=== PATIENT | female | born 1990 | race American Indian/Alaskan Native ===

== ENCOUNTER 2016-11-10 17:10 | Emergency (ER) | payer MEDICAID ==
--- NOTE | 2016-11-10 20:56 | Emergency Department Report ---
Entered by ZELDA NUNEZ, acting as scribe for CHEYENNE LEE PA. ED General Adult HPI - General Chief complaint: Skin Rash Stated complaint: ALLERGIC REACTION Time Seen by Provider: 11/10/16 20:10 Source: patient Mode of arrival: Ambulatory Limitations: No Limitations - History of Present Illness Initial comments: 26 y/o female presents to ED c/o rashes to her arms, legs, buttocks, and genitals since 1 week ago. She states she initially believed it was an allergic reaction, per her mother, and admits to taking Benadryl with relief of rashes from her arms and legs; however, notes the rash on her buttocks and genital area has persisted. She describes the rash as red bumps that are itchy, and aggravated by scratching affect areas. Pt denies history of allergic reactions. She denies bleeding or drainage from the rashes, as well as fever, nausea, vomiting, dysphagia, shortness of breath, abdominal pain, chest pain, urinary symptoms, vaginal discharge. She states she has never experienced these symptoms before. No additional complaints. Onset/Timin -: Gradual, week(s) Location: genitals, buttocks, upper extremity, lower extremity Radiation: non-radiation Quality: constant Consistency: constant (noting resolution of rash to arms and legs only) Improves with: other (Benadryl, resolving rash to arms and legs only) Worsens with: other (scratching affected area) Associated Symptoms: denies: denies other symptoms, chest pain, fever/chills, nausea/vomiting, shortness of breath, other (dysphagia) Treatments Prior to Arrival: other (Benadryl) - Related Data Previous Rx's Medication Instructions Recorded Last Taken Type diphenhydrAMINE [Benadryl CAP] 25 mg PO Q6HR PRN #30 capsule 11/10/16 Unknown Rx predniSONE [Deltasone] 20 mg PO QDAY #5 tab 11/10/16 Unknown Rx Allergies Allergy/AdvReac Type Severity Reaction Status Date / Time No Known Allergies Allergy Unverified 11/10/16 17:32 ED Review of Systems ROS: Constitutional: Denies chills, fever, diaphoresis, malaise, weakness Eyes: Denies eye pain ENT: Denies ear pain, throat pain, congestion Respiratory: Denies cough, shortness of breath, wheezing Cardiovascular: Denies chest pain, palpitations Endocrine: No symptoms reported GI: Denies abdominal pain, nausea, vomiting, diarrhea Musculoskeletal: Denies back pain, joint swelling, arthralgia, myalgia Skin: Positive for rash, pruritus to buttocks and genitals, negative for bleeding or drainage Neurological: Denies headache, weakness, numbness, paresthesias ED Past Medical Hx - Past Medical History Previous Medical History?: No - Surgical History Past Surgical History?: No - Social History Smoking Status: Never Smoker Substance Use Type: Alcohol - Medications Home Medications: Home Medications Medication Instructions Recorded Confirmed Last Taken Type diphenhydrAMINE [Benadryl CAP] 25 mg PO Q6HR PRN #30 capsule 11/10/16 Unknown Rx predniSONE [Deltasone] 20 mg PO QDAY #5 tab 11/10/16 Unknown Rx ED Physical Exam - General Limitations: No Limitations - Other Other exam information: GENERAL: The patient is well-developed and well-nourished. Patient is in NAD. HEAD: Normocephalic. Atraumatic. EYES: Extraocular motions are intact, PERRL. EARS: External auditory canals and tympanic membranes clear; hearing grossly intact. NOSE: Normal nasal mucosa with no nasal discharge. THROAT: No erythema, swelling or exudates. NECK: Supple, nontender, without lymphadenopathy. No meningitic signs are noted. CHEST/LUNGS: Clear to auscultation throughout. HEART/CARDIOVASCULAR: Regular rate and rhythm. No murmurs, rubs or gallops. ABDOMEN: Abdomen is soft, nontender. Bowel sounds normoactive. No guarding or rebound tenderness. EXTREMITIES: No cyanosis, clubbing or edema. Peripheral pulses intact. Capillary refill less than 2 seconds. SKIN: Erythematous, blanching, maculo-papular rash noted over buttocks and genital folds. No tenderness to palpation. Positive for pruritis. ED Course Vital Signs 11/10/16 17:29 Temperature 98.6 F Pulse Rate 85 Respiratory 18 Rate Blood Pressure 123/78 O2 Sat by Pulse 100 Oximetry ED Medical Decision Making - Lab Data Vital Signs 11/10/16 17:29 Temperature 98.6 F Pulse Rate 85 Respiratory 18 Rate Blood Pressure 123/78 O2 Sat by Pulse 100 Oximetry - Medical Decision Making 26 year old female patient with no history of allergies presents today with pruritic rash to her buttocks and genital areas persisting since 1 week. Patient is in no acute distress at this time. She will be discharged home and is encouraged to follow up with a primary care provider. She will be sent home on Benadryl and prednisone and is encouraged to return to the emergency room for any worsening symptoms. ED Disposition Clinical Impression: Rash, Pruritus and related conditions Disposition: DISCHARGED TO HOME OR SELFCARE Is pt being admited?: No Does the pt Need Aspirin: No Condition: Stable Instructions: Acute Rash (ED), Food Allergy (ED), Urticaria (ED) Additional Instructions: Follow-up with primary care provider. Return to the emergency department if symptoms worsen. Prescriptions: diphenhydrAMINE [Benadryl CAP] 25 mg PO Q6HR PRN #30 capsule PRN Reason: Itching predniSONE [Deltasone] 20 mg PO QDAY #5 tab Referrals: MICHAEL SMITH MD [Primary Care Provider] - 3-5 Days [facility] [Outside] - 3-5 Days Forms: Work/School Release Form(ED) Time of Disposition: 20:53 This documentation as recorded by the MAYRA hay AHSAN,accurately reflects the service I personally performed and the decisions made by ,CHEYENNE LEE PA.
[2016-11-10 21:05] VITALS: BP 122/60
== END 2016-11-10 21:29 | disposition home or self-care (01) ==
LOC: ED 17:10
DX: L29.9 Pruritus, unspecified (principal)
CPT/HCPCS: 99282

== ENCOUNTER 2019-01-30 10:43 | Emergency (ER) | payer MEDICAID ==
[2019-01-30 10:51] VITALS: BP 134/92
--- NOTE | 2019-01-30 11:44 | XRay Report ---
CHEST 2 VIEWS INDICATION / CLINICAL INFORMATION: MAIN: cough FOR 1 MONTH. COMPARISON: None available. FINDINGS: SUPPORT DEVICES: None. HEART / MEDIASTINUM: No significant abnormality. LUNGS / PLEURA: No significant pulmonary or pleural abnormality. No pneumothorax. ADDITIONAL FINDINGS: No significant additional findings. IMPRESSION: 1. No acute findings. Signer Name: Rickie Fuller MD Signed: 01/30/2019 11:40 AM Workstation Name: [id number]
--- NOTE | 2019-01-30 13:10 | Emergency Department Report ---
Minor Respiratory - HPI Chief Complaint: Dizziness Stated Complaint: SEVERE COUGH/RAPID HEART BEAT Time Seen by Provider: 01/30/19 12:15 Duration: 4 weeks Severity: moderate Minor Respiratory: Yes Able to Tolerate Fluids, Yes Cough, No Rhinorrhea, No Sore Throat, No Ear Pain, No Sick Contacts, No Hemoptysis, No Chest Pain, No Shortness of Breath, No Fever Other History: 28-year-old healthy looking female who presents to ED complaining of coughing for the past month. Patient states cough is dry cough nonproductive. Patient states she has used all the counter medications with no relief. Patient denies any history of asthma or smoker. ED Review of Systems ROS: Stated complaint: SEVERE COUGH/RAPID HEART BEAT Other details as noted in HPI Comment: All other systems reviewed and negative ED Past Medical Hx - Past Medical History Previous Medical History?: No - Surgical History Past Surgical History?: No - Social History Smoking Status: Never Smoker Substance Use Type: Alcohol - Medications Home Medications: Home Medications Medication Instructions Recorded Confirmed Last Taken Type diphenhydrAMINE [Benadryl CAP] 25 mg PO Q6HR PRN #30 capsule 11/10/16 Unknown Rx predniSONE [Deltasone] 20 mg PO QDAY #5 tab 11/10/16 Unknown Rx ALBUTEROL Inhaler (OR & NICU) 2 puff IH QID PRN #1 inhalation 01/30/19 Unknown Rx [ProAir HFA Inhaler] Acetamin/Codeine 120-12Mg/5 ml 5 ml PO TID PRN #60 ml 01/30/19 Unknown Rx [Tylenol/Codeine] Benzonatate [Tessalon Perles] 100 mg PO Q8HR #20 capsule 01/30/19 Unknown Rx Minor Respiratory Exam - Exam General: Vital signs noted. No distress. Alert and acting appropriately. HEENT: Yes Moist Mucous Membranes, No Pharyngeal Erythema, No Pharyngeal Exudates, No Rhinorrhea, No Conjuctival Injection, No Frontal Tenderness, No Maxillary Tenderness Ear: Neither TM Bulge, Neither TM Erythema, Neither EAC Pain, Neither EAC Discharge Neck: Yes Supple, No Adenopathy Lungs: Yes Good Air Exchange, No Wheezes, No Ronchi, No Stridor, No Cough, No Labored Respirations, No Retractions, No Use of Accessory Muscles, No Other Abnormal Lung Sounds Heart: Yes Regular, No Murmur Abdomen: Yes Normal Bowel Sounds, No Tenderness, No Peritoneal Signs Skin: No Rash, No Edema Neurologic: Alert and oriented, no deficits. Musculoskeletal: Unremarkable. ED Course Vital Signs 01/30/19 10:49 Temperature 98.7 F Pulse Rate 94 H Respiratory 18 Rate Blood Pressure 134/92 O2 Sat by Pulse 100 Oximetry ED Medical Decision Making - Radiology Data Radiology results: report reviewed, image reviewed INDICATION / CLINICAL INFORMATION: MAIN: cough FOR 1 MONTH. COMPARISON: None available. FINDINGS: SUPPORT DEVICES: None. HEART / MEDIASTINUM: No significant abnormality. LUNGS / PLEURA: No significant pulmonary or pleural abnormality. No pneumothorax. ADDITIONAL FINDINGS: No significant additional findings. IMPRESSION: 1. No acute findings. Signer Name: Rickie Fuller MD Signed: 01/30/2019 11:40 AM Workstation Name: [id number] Transcribed By: LUIS Dictated By: Rickie Fuller MD Electronically Authenticated By: Rickie Fuller MD - Medical Decision Making 28-year-old female presents with bronchitis for the past month. This history obtained. Chest x-ray shows no acute findings. Discussed the patient bronchitis. The 4-6 weeks. Discussed her normal medication to help with the symptoms. Discussed follow-up with primary care physician 3-4 days. Vital signs are are normal patient is in acute distress. Patient is not in any respiratory distress as well. Patient received prednisone in the ED. Critical care attestation.: If time is entered above; I have spent that time in minutes in the direct care of this critically ill patient, excluding procedure time. ED Disposition Clinical Impression: Bronchitis Disposition: DC-01 TO HOME OR SELFCARE Is pt being admited?: No Does the pt Need Aspirin: No Condition: Stable Instructions: Chronic Bronchitis (ED) Additional Instructions: Make sure to follow up with the primary care physician as discussed. Take all your medications as you've been prescribed. If you have any worsening symptoms or develop new symptoms please return to ED immediately.Discharge Prescriptions: ALBUTEROL Inhaler (OR & NICU) [ProAir HFA Inhaler] 2 puff IH QID PRN #1 inhalation PRN Reason: Shortness Of Breath Benzonatate [Tessalon Perles] 100 mg PO Q8HR #20 capsule Acetamin/Codeine 120-12Mg/5 ml [Tylenol/Codeine] 5 ml PO TID PRN #60 ml PRN Reason: Pain Referrals: ESTHER BROOKS MD [Primary Care Provider] - 3-5 Days [facility] [Provider Group] - 3-5 Days [facility] [Outside] - 3-5 Days Forms: Work/School Release Form(ED)
[2019-01-30] MEDS ORDERED: DELTASONE PO ONE (13:12)
== END 2019-01-30 13:23 | disposition home or self-care (01) ==
LOC: ED 10:43
DX: J40 Bronchitis, not specified as acute or chronic (principal); Z79.899 Other long term (current) drug therapy
CPT/HCPCS: 71046; 99283; J7512

== ENCOUNTER 2019-06-20 13:45 | Emergency (ER) | payer SELFPAY ==
[2019-06-20 13:52] VITALS: BP 130/81
--- NOTE | 2019-06-20 13:57 | Emergency Department Report ---
Blank Doc - Documentation Documentation: 29-year-old female that presents with dizziness and n/v. This initial assessment/diagnostic orders/clinical plan/treatment(s) is/are subject to change based on patient's health status, clinical progression and re- assessment by fellow clinical providers in the ED. Further treatment and workup at subsequent clinical providers discretion. Patient/guardians urged not to elope from the ED as their condition may be serious if not clinically assessed and managed. Initial orders include: 1- Patient sent to [facility] for further evaluation and treatment 2- labs 3- UA
[2019-06-20 14:20] LABS: Basophils % (Auto) 0.6 % (0.0-1.8); Eosinophils # (Auto) 0.1 K/mm3 (0.0-0.4); Eosinophils % (Auto) 1.1 % (0.0-4.3); Hemoglobin 13.9 gm/dl (10.1-14.3); Lymphocytes # (Auto) 2.3 K/mm3 (1.2-5.4); Lymphocytes % (Auto) 31.5 % (13.4-35.0); Mean Corpuscular HGB Conc 32 % (30-34); Mean Corpuscular Volume 85 fl (79-97); Monocytes # (Auto) 0.8 K/mm3 (0.0-0.8); Monocytes % (Auto) 10.8 % (0.0-7.3); Platelet Count 245 K/mm3 (140-440); Red Blood Count 5.03 M/mm3 (3.65-5.03); Red Cell Distribution Width 13.3 % (13.2-15.2)
[2019-06-20 14:43] LABS: Alanine Aminotransferase 16 units/L (7-56); Albumin 4.4 g/dL (3.9-5); BUN/Creatinine Ratio 17; Blood Urea Nitrogen 12 mg/dL (7-17); Calcium 9.2 mg/dL (8.4-10.2); Hemolysis Index 10
--- NOTE | 2019-06-20 15:35 | Emergency Department Report ---
Vomiting/Diarrhea - HPI Chief Complaint: Nausea/Vomiting/Diarrhea Stated Complaint: DIZZINESS/VOMITING/TINGLING BILAT LEG Time Seen by Provider: 06/20/19 13:56 Duration: 3 Days Severity: mild Nausea/Vomiting Severity: Mild Diarrhea Severity: None Pain Severity: None Symptoms: Yes Able to Tolerate Fluids, No Watery Diarrhea, No Bloody diarrhea, No Fever, No Recent Unusual Foods, No Recent Untreated Water, No Recent use of Antibiotics, No Family w/ Similar Symptoms, No Contacts w/ Similar Symptoms, No Rash, No Hematuria, No Recent URI Symptoms Other History: 29-year-old female presents to ED complaining of nausea for the past 3 days. Patient also states that for about a month now she's been having tingling sensation in her legs. She denies any injury, pain, abdominal pain, shortness of breath, chest pain, dysuria, vaginal discharge, ED Review of Systems ROS: Stated complaint: DIZZINESS/VOMITING/TINGLING BILAT LEG Other details as noted in HPI Comment: All other systems reviewed and negative ED Past Medical Hx - Past Medical History Previous Medical History?: Yes Additional medical history: Vaginal delivery - Surgical History Past Surgical History?: No - Social History Smoking Status: Former Smoker Substance Use Type: Alcohol - Medications Home Medications: Home Medications Medication Instructions Recorded Confirmed Last Taken Type diphenhydrAMINE [Benadryl CAP] 25 mg PO Q6HR PRN #30 capsule 11/10/16 Unknown Rx predniSONE [Deltasone] 20 mg PO QDAY #5 tab 11/10/16 Unknown Rx ALBUTEROL Inhaler (OR & NICU) 2 puff IH QID PRN #1 inhalation 01/30/19 Unknown Rx [ProAir HFA Inhaler] Acetamin/Codeine 120-12Mg/5 ml 5 ml PO TID PRN #60 ml 01/30/19 Unknown Rx [Tylenol/Codeine] Benzonatate [Tessalon Perles] 100 mg PO Q8HR #20 capsule 01/30/19 Unknown Rx Ondansetron [Zofran ODT TAB] 8 mg PO Q12HR #20 tab.rapdis 06/20/19 Unknown Rx Vomiting Diarrhea Exam - Exam General: Vital signs noted. No distress. Alert and acting appropriately. HEENT: Yes Moist Mucous Membranes, No Pharyngeal Erythema, No Pharyngeal Exudates, No Rhinorrhea, No Conjuctival Injection, No Frontal Tenderness, No Maxillary Tenderness Neck: No Adenopathy, No Rigidity Lungs: Yes Clear Lung Sounds, Yes Good Air Exchange, No Wheezes, No Stridor, No Cough, No Nasal Flaring, No Retractions, No Use of Accessory Muscles Heart exam: Regular: Yes, Murmur: No, Tachycardia: No Abdomen: Tenderness: No, Peritoneal Signs: No, Distention: No, Hyperactive Bowel sounds: No Skin exam: Rash: No, Edema: No, Normal turgor: Yes Neurologic: Alert and oriented, no deficits. Musculoskeletal: Unremarkable. ED Course Vital Signs 06/20/19 13:50 Temperature 98.4 F Pulse Rate 104 H Respiratory 18 Rate Blood Pressure 130/81 O2 Sat by Pulse 96 Oximetry ED Medical Decision Making - Lab Data Result diagrams: 06/20/19 14:01 06/20/19 14:01 Laboratory Last Values WBC 7.2 K/mm3 (4.5-11.0) 06/20/19 14:01 RBC 5.03 M/mm3 (3.65-5.03) 06/20/19 14:01 Hgb 13.9 gm/dl (10.1-14.3) 06/20/19 14:01 Hct 43.0 % (30.3-42.9) H 06/20/19 14:01 MCV 85 fl (79-97) 06/20/19 14:01 MCH 28 pg (28-32) 06/20/19 14:01 MCHC 32 % (30-34) 06/20/19 14:01 RDW 13.3 % (13.2-15.2) 06/20/19 14:01 Plt Count 245 K/mm3 (140-440) 06/20/19 14:01 Lymph % (Auto) 31.5 % (13.4-35.0) 06/20/19 14:01 Bowman % (Auto) 10.8 % (0.0-7.3) H 06/20/19 14:01 Eos % (Auto) 1.1 % (0.0-4.3) 06/20/19 14:01 Baso % (Auto) 0.6 % (0.0-1.8) 06/20/19 14:01 Lymph # 2.3 K/mm3 (1.2-5.4) 06/20/19 14:01 Bowman # 0.8 K/mm3 (0.0-0.8) 06/20/19 14:01 Eos # 0.1 K/mm3 (0.0-0.4) 06/20/19 14:01 Baso # 0.0 K/mm3 (0.0-0.1) 06/20/19 14:01 Seg Neutrophils % 56.0 % (40.0-70.0) 06/20/19 14:01 Seg Neutrophils # 4.0 K/mm3 (1.8-7.7) 06/20/19 14:01 Sodium 137 mmol/L (137-145) 06/20/19 14:01 Potassium 3.9 mmol/L (3.6-5.0) 06/20/19 14:01 Chloride 100.9 mmol/L (98-107) 06/20/19 14:01 Carbon Dioxide 24 mmol/L (22-30) 06/20/19 14:01 Anion Gap 16 mmol/L 06/20/19 14:01 BUN 12 mg/dL (7-17) 06/20/19 14:01 Creatinine 0.7 mg/dL (0.7-1.2) 06/20/19 14:01 Estimated GFR > 60 ml/min 06/20/19 14:01 BUN/Creatinine Ratio 17 % 06/20/19 14:01 Glucose 75 mg/dL (65-100) 06/20/19 14:01 Calcium 9.2 mg/dL (8.4-10.2) 06/20/19 14:01 Total Bilirubin 0.70 mg/dL (0.1-1.2) 06/20/19 14:01 AST 16 units/L (5-40) 06/20/19 14:01 ALT 16 units/L (7-56) 06/20/19 14:01 Alkaline Phosphatase 54 units/L (35-129) 06/20/19 14:01 Total Protein 7.7 g/dL (6.3-8.2) 06/20/19 14:01 Albumin 4.4 g/dL (3.9-5) 06/20/19 14:01 Albumin/Globulin Ratio 1.3 % 06/20/19 14:01 Lipase 22 units/L (13-60) 06/20/19 14:01 HCG, Qual Negative (Negative) 06/20/19 14:01 - Medical Decision Making 29-year-old female presents with a nausea vomiting secondary to gastroenteritis All labs are within normal limits. There was no active vomiting in the ED Patient tolerated fluids in the ED Vital signs are normal patient acute distress Dissipation of follow-up with primary care physician in then next 3-5 days. Critical care attestation.: If time is entered above; I have spent that time in minutes in the direct care of this critically ill patient, excluding procedure time. ED Disposition Clinical Impression: Nausea & vomiting, Bilateral leg paresthesia Disposition: TO HOME OR SELFCARE Is pt being admited?: No Does the pt Need Aspirin: No Condition: Stable Instructions: Acute Nausea and Vomiting (ED), Food Poisoning (ED) Additional Instructions: Make sure to follow up with the primary care physician as discussed. Take all your medications as you've been prescribed. If you have any worsening symptoms or develop new symptoms please return to ED immediately. Prescriptions: Ondansetron [Zofran ODT TAB] 8 mg PO Q12HR #20 tab.rapdis Referrals: [facility] [Provider Group] - 3-5 Days [facility] [Outside] - 3-5 Days Forms: Accompanied Note, Work/School Release Form(ED) Time of Disposition: 15:34
[2019-06-20 16:25] LABS: Bilirubin,Urine NEG (Negative); Blood,Urine NEG (Negative); Color,Urine Yellow (Yellow); Mucus,Urine 1+ /HPF; Protein,Urine <15 mg/dL mg/dL (Negative)
== END 2019-06-20 15:50 | disposition home or self-care (01) ==
LOC: ED 13:45
DX: R11.2 Nausea with vomiting, unspecified (principal); R20.2 Paresthesia of skin; Z87.891 Personal history of nicotine dependence; Z79.899 Other long term (current) drug therapy
CPT/HCPCS: 36415; 80053; 81001; 83690; 84703; 85025

== ENCOUNTER 2021-10-07 09:39 | Emergency (ER) | payer MEDICAID ==
[2021-10-07 09:47] VITALS: BP 134/75
[2021-10-07 10:51] LABS: Basophils % (Auto) 0.6 % (0.0-1.8); Eosinophils % (Auto) 0.6 % (0.0-4.3); Hemoglobin 11.9 gm/dl (10.1-14.3); Lymphocytes # (Auto) 1.3 K/mm3 (1.2-5.4); Lymphocytes % (Auto) 19.9 % (13.4-35.0); Mean Corpuscular HGB Conc 33 % (30-34); Mean Corpuscular Volume 85 fl (79-97); Monocytes # (Auto) 0.6 K/mm3 (0.0-0.8); Monocytes % (Auto) 9.5 % (0.0-7.3); Platelet Count 180 K/mm3 (140-440); Red Blood Count 4.24 M/mm3 (3.65-5.03); Red Cell Distribution Width 13.3 % (13.2-15.2)
[2021-10-07 11:22] LABS: INR 0.87 (0.87-1.13)
[2021-10-07 11:23] LABS: Partial Thromboplastin Time 24.2 Sec. (24.2-36.6)
--- NOTE | 2021-10-07 11:37 | Ultrasound Report ---
Transvaginal and transabdominal ultrasound INDICATION: Vaginal bleeding FINDINGS: Right ovary measures 3.4 x 1.0 cm. Left ovary 3.3 x 1.5 cm. [place]-rump length measures 6.87 cm measuring 13 weeks 1 day. heart rate 1 64 bpm. Positive pole and limb movements. No s ignificant free fluid. Uterus measures 12.9 x 8.8 x 10.3 cm. Small subchorionic bleed measuring up to 1 cm. IMPRESSION: Live intrauterine prior examination measuring 13 weeks 1 day by ultrasound. heart rate 1 64 bpm . Small subchorionic bleed. No significant free fluid Signer Name: Amos Khan MD Signed: 10/07/2021 11:33 AM Workstation Name: [id number]
--- NOTE | 2021-10-07 11:37 | Ultrasound Report ---
Transvaginal and transabdominal ultrasound INDICATION: Vaginal bleeding FINDINGS: Right ovary measures 3.4 x 1.0 cm. Left ovary 3.3 x 1.5 cm. [place]-rump length measures 6.87 cm measuring 13 weeks 1 day. heart rate 1 64 bpm. Positive pole and limb movements. No s ignificant free fluid. Uterus measures 12.9 x 8.8 x 10.3 cm. Small subchorionic bleed measuring up to 1 cm. IMPRESSION: Live intrauterine prior examination measuring 13 weeks 1 day by ultrasound. heart rate 1 64 bpm . Small subchorionic bleed. No significant free fluid Signer Name: Amos Khan MD Signed: 10/07/2021 11:33 AM Workstation Name: [id number]
[2021-10-07 11:57] LABS: Bilirubin,Urine NEG (Negative); Blood,Urine LG (Negative); Mucus,Urine FEW /HPF; Urobilinogen,Urine < 2.0 mg/dL (<2.0)
[2021-10-07 12:22] LABS: RBC,Urine > 182.0 /HPF (0.0-6.0)
[2021-10-07 12:23] LABS: Color,Urine Amber (Yellow)
--- NOTE | 2021-10-07 12:49 | Emergency Department Report ---
ED HPI - General Chief complaint: Vaginal Bleeding Stated complaint: 12 WKS /BLEEDING Time Seen by Provider: 10/07/21 10:15 Source: patient Mode of arrival: Ambulatory Limitations: No Limitations - History of Present Illness Initial comments: This is a 31-year-old female nontoxic, well nourished in appearance, no acute signs of distress presents to the ED with c/o of vaginal bleeding and pelvic cramping x1 day. Patient stated yesterday she noticed some spotting. Patient denies any abdominal pain. Patient denies any vaginal discharge or foul odor. Patient denies any nausea, vomiting, chest pain, shortness of breathe, fever, chills, headache, stiff neck, numbness, tingling. Patient denies any urinary symptoms. Patient denies any allergies or PMH. MD Complaint: vaginal bleeding -: days(s) Location: pelvis Radiation: none Severity: mild Severity scale (0 -10): 3 Quality: cramping Consistency: intermittent Improves with: none Worsens with: none Associated symptoms: vaginal bleeding. denies: nausea/vomiting, vaginal discharge, abdominal pain, dysuria, headache, vision changes, malaise, dysparuenia, rash, seizure, shortness of breath, syncope, weakness Vaginal bleeding: light :: Yes Pre- care: none - Related Data Previous Rx's Medication Instructions Recorded Last Taken Type diphenhydrAMINE [Benadryl CAP] 25 mg PO Q6HR PRN #30 capsule 11/10/16 Unknown Rx predniSONE [Deltasone] 20 mg PO QDAY #5 tab 11/10/16 Unknown Rx Acetamin/Codeine 120-12Mg/5 ml 5 ml PO TID PRN #60 ml 01/30/19 Unknown Rx [Tylenol/Codeine] Albuterol Mdi (or & Nicu Only) 2 puff IH QID PRN #1 inhalation 01/30/19 Unknown Rx [ProAir HFA Inhaler] Benzonatate [Tessalon Perles] 100 mg PO Q8HR #20 capsule 01/30/19 Unknown Rx Ondansetron [Zofran ODT TAB] 8 mg PO Q12HR #20 tab.rapdis 06/20/19 Unknown Rx cephALEXin [Keflex] 500 mg PO Q8HR #21 cap 10/07/21 Unknown Rx Allergies Allergy/AdvReac Type Severity Reaction Status Date / Time No Known Allergies Allergy Verified 01/30/19 10:49 ED Review of Systems ROS: Stated complaint: 12 WKS /BLEEDING Other details as noted in HPI Comment: All other systems reviewed and negative Constitutional: denies: chills, fever Eyes: denies: eye pain, eye discharge, vision change ENT: denies: ear pain, throat pain Respiratory: denies: cough, shortness of breath, wheezing Cardiovascular: denies: chest pain, palpitations Endocrine: no symptoms reported Gastrointestinal: denies: abdominal pain, nausea, diarrhea Genitourinary: abnormal menses. denies: urgency, dysuria, discharge Musculoskeletal: denies: back pain, joint swelling, arthralgia Skin: denies: rash, lesions Neurological: denies: headache, weakness, paresthesias Psychiatric: denies: anxiety, depression Hematological/Lymphatic: denies: easy bleeding, easy bruising ED Past Medical Hx - Past Medical History Previous Medical History?: Yes Additional medical history: Vaginal delivery x 3 - Surgical History Past Surgical History?: No - Social History Smoking Status: Former Smoker Substance Use Type: Alcohol - Medications Home Medications: Home Medications Medication Instructions Recorded Confirmed Last Taken Type diphenhydrAMINE [Benadryl CAP] 25 mg PO Q6HR PRN #30 capsule 11/10/16 Unknown Rx predniSONE [Deltasone] 20 mg PO QDAY #5 tab 11/10/16 Unknown Rx Acetamin/Codeine 120-12Mg/5 ml 5 ml PO TID PRN #60 ml 01/30/19 Unknown Rx [Tylenol/Codeine] Albuterol Mdi (or & Nicu Only) 2 puff IH QID PRN #1 inhalation 01/30/19 Unknown Rx [ProAir HFA Inhaler] Benzonatate [Tessalon Perles] 100 mg PO Q8HR #20 capsule 01/30/19 Unknown Rx Ondansetron [Zofran ODT TAB] 8 mg PO Q12HR #20 tab.rapdis 06/20/19 Unknown Rx cephALEXin [Keflex] 500 mg PO Q8HR #21 cap 10/07/21 Unknown Rx ED Physical Exam - General Limitations: No Limitations General appearance: alert, in no apparent distress - Head Head exam: Present: atraumatic, normocephalic - Eye Eye exam: Present: normal appearance - Neck Neck exam: Present: normal inspection, full ROM. Absent: lymphadenopathy - Respiratory Respiratory exam: Present: normal lung sounds bilaterally. Absent: respiratory distress, wheezes, rales, rhonchi, stridor, chest wall tenderness, accessory muscle use, decreased breath sounds, prolonged expiratory - Cardiovascular Cardiovascular Exam: Present: regular rate, normal rhythm, normal heart sounds. Absent: bradycardia, tachycardia, irregular rhythm, systolic murmur, diastolic murmur, rubs, gallop - GI/Abdominal GI/Abdominal exam: Present: soft, normal bowel sounds. Absent: distended, tenderness, guarding, rebound, rigid - Extremities Exam Extremities exam: Present: full ROM - Back Exam Back exam: Present: normal inspection, full ROM. Absent: tenderness, CVA tenderness (R), CVA tenderness (L), muscle spasm, paraspinal tenderness, vertebral tenderness, rash noted - Neurological Exam Neurological exam: Present: alert, oriented X3, normal gait - Psychiatric Psychiatric exam: Present: normal affect, normal mood - Skin Skin exam: Present: warm, dry, intact, normal color. Absent: rash ED Course Vital Signs 10/07/21 09:46 Temperature 98.4 F Pulse Rate 78 Respiratory 20 Rate Blood Pressure 134/75 [Right] O2 Sat by Pulse 100 Oximetry - Reevaluation(s) Reevaluation #1: 10/07/21 12:45 Patient is speaking in full sentences with no signs of distress noted. ED Medical Decision Making - Lab Data Result diagrams: 10/07/21 10:40 Lab Results 10/07/21 10/07/21 10/07/21 Range/Units 10:40 10:40 10:40 WBC 6.3 (4.5-11.0) K/mm3 RBC 4.24 (3.65-5.03) M/mm3 Hgb 11.9 (10.1-14.3) gm/dl Hct 36.0 (30.3-42.9) % MCV 85 (79-97) fl MCH 28 (28-32) pg MCHC 33 (30-34) % RDW 13.3 (13.2-15.2) % Plt Count 180 (140-440) K/mm3 Lymph % (Auto) 19.9 (13.4-35.0) % [place] % (Auto) 9.5 H (0.0-7.3) % Eos % (Auto) 0.6 (0.0-4.3) % Baso % (Auto) 0.6 (0.0-1.8) % Lymph # (Auto) 1.3 (1.2-5.4) K/mm3 [place] # (Auto) 0.6 (0.0-0.8) K/mm3 Eos # (Auto) 0.0 (0.0-0.4) K/mm3 Baso # (Auto) 0.0 (0.0-0.1) K/mm3 Seg Neutrophils % 69.4 (40.0-70.0) % Seg Neutrophils # 4.4 (1.8-7.7) K/mm3 PT 12.7 (12.2-14.9) Sec. INR 0.87 (0.87-1.13) APTT 24.2 (24.2-36.6) Sec. HCG, Quant [id number] H (0-4) mIU/mL Urine Color (Yellow) Urine Turbidity (Clear) Urine pH (5.0-7.0) Ur Specific [place] (1.003-1.030) Urine Protein (Negative) mg/dL Urine Glucose (UA) (Negative) mg/dL Urine Ketones (Negative) mg/dL Urine Blood (Negative) Urine Nitrite (Negative) Urine Bilirubin (Negative) Urine Urobilinogen (<2.0) mg/dL Ur Leukocyte Esterase (Negative) Urine WBC (Auto) (0.0-6.0) /HPF Urine RBC (Auto) (0.0-6.0) /HPF U Epithel Cells (Auto) (0-13.0) /HPF Urine Mucus /HPF Blood Type 10/07/21 10/07/21 Range/Units 10:40 11:21 WBC (4.5-11.0) K/mm3 RBC (3.65-5.03) M/mm3 Hgb (10.1-14.3) gm/dl Hct (30.3-42.9) % MCV (79-97) fl MCH (28-32) pg MCHC (30-34) % RDW (13.2-15.2) % Plt Count (140-440) K/mm3 Lymph % (Auto) (13.4-35.0) % [place] % (Auto) (0.0-7.3) % Eos % (Auto) (0.0-4.3) % Baso % (Auto) (0.0-1.8) % Lymph # (Auto) (1.2-5.4) K/mm3 [place] # (Auto) (0.0-0.8) K/mm3 Eos # (Auto) (0.0-0.4) K/mm3 Baso # (Auto) (0.0-0.1) K/mm3 Seg Neutrophils % (40.0-70.0) % Seg Neutrophils # (1.8-7.7) K/mm3 PT (12.2-14.9) Sec. INR (0.87-1.13) APTT (24.2-36.6) Sec. HCG, Quant (0-4) mIU/mL Urine Color [place] (Yellow) Urine Turbidity Slightly-cloudy (Clear) Urine pH 6.0 (5.0-7.0) Ur Specific [place] 1.021 (1.003-1.030) Urine Protein 30 mg/dl (Negative) mg/dL Urine Glucose (UA) Neg (Negative) mg/dL Urine Ketones Neg (Negative) mg/dL Urine Blood Lg (Negative) Urine Nitrite Neg (Negative) Urine Bilirubin Neg (Negative) Urine Urobilinogen < 2.0 (<2.0) mg/dL Ur Leukocyte Esterase Neg (Negative) Urine WBC (Auto) 16.0 H (0.0-6.0) /HPF Urine RBC (Auto) > 182.0 (0.0-6.0) /HPF U Epithel Cells (Auto) 3.0 (0-13.0) /HPF Urine Mucus Few /HPF Blood Type A POSITIVE - Radiology Data [facility] [address] [place] [address] Ultrasound Report Signed Patient: DAQUAN TYLER MR#: [id number] : 1990 Acct:[id number] Age/Sex: 31 / F ADM Date: 10/07/21 Loc: ED Attending Dr: Ordering Physician: NEYMAR BRITTON MD Date of Service: 10/07/21 Procedure(s): US OB transvaginal Accession Number(s): [id number] cc: NEYMAR BRITTON MD Transvaginal and transabdominal ultrasound INDICATION: Vaginal bleeding FINDINGS: Right ovary measures 3.4 x 1.0 cm. Left ovary 3.3 x 1.5 cm. [place]- rump length measures 6.87 cm measuring 13 weeks 1 day. heart rate 1 64 bpm. Positive pole and limb movements. No significant free fluid. Uterus measures 12.9 x 8.8 x 10.3 cm. Small subchorionic bleed measuring up to 1 cm. IMPRESSION: Live intrauterine prior examination measuring 13 weeks 1 day by ultrasound. heart rate 1 64 bpm. Small subchorionic bleed. No significant free fluid Signer Name: Amos Khan MD Signed: 10/07/2021 11:33 AM Workstation Name: [id number] Transcribed By: ROBERT Dictated By: HUNTER KHAN MD Electronically Authenticated By: HUNTER KHAN MD Signed Date/Time: 10/07/211132 DD/ 113 TD/TT: [address] [address] Ultrasound Report Signed Patient: DAQUAN TYLER MR#: [id number] : 1990 Acct:[id number] Age/Sex: 31 / F ADM Date: 10/07/21 Loc: ED Attending Dr: Ordering Physician: NEYMAR BRITTON MD Date of Service: 10/07/21 Procedure(s): US OB <= 14 weeks fetus Accession Number(s): [id number] cc: NEYMAR BRITTON MD Transvaginal and transabdominal ultrasound INDICATION: Vaginal bleeding FINDINGS: Right ovary measures 3.4 x 1.0 cm. Left ovary 3.3 x 1.5 cm. [place]- rump length measures 6.87 cm measuring 13 weeks 1 day. heart rate 1 64 bpm. Positive pole and limb movements. No significant free fluid. Uterus measures 12.9 x 8.8 x 10.3 cm. Small subchorionic bleed measuring up to 1 cm. IMPRESSION: Live intrauterine prior examination measuring 13 weeks 1 day by ultrasound. heart rate 1 64 bpm. Small subchorionic bleed. No significant free fluid Signer Name: Amos Khan MD Signed: 10/07/2021 11:33 AM Workstation Name: [id number] Transcribed By: ROBERT Dictated By: HUNTER KHAN MD Electronically Authenticated By: HUNTER KHAN MD Signed Date/Time: 10/07/211132 DD/ 30 TD/TT: - Medical Decision Making This is a 31-year-old female presents with threatened miscarriage and UTI. Patient is stable and was examined by me. Normal abdominal exam. US OB obtained and dictated by the radiologist. Ua obtained. Quantative serum test obtained. Patient notified of the US report with no questions noted by the patient. Patient was instructed f/u with [facility] in 3-5 days. RH factor positive. Labs within normal limits. At time of discharge, the patient does not seem toxic or ill in appearance. No acute signs of distress noted. Patient agrees to discharge treatment plan of care. No further questions noted by the patient. Critical care attestation.: If time is entered above; I have spent that time in minutes in the direct care of this critically ill patient, excluding procedure time. ED Disposition Clinical Impression: Threatened miscarriage UTI (urinary tract infection) Qualifiers: Urinary tract infection type: acute cystitis Hematuria presence: with hematuria Qualified Code(s): N30.01 - Acute cystitis with hematuria Disposition: HOME / SELF CARE / HOMELESS Is pt being admited?: No Does the pt Need Aspirin: No Condition: Stable Instructions: Threatened Miscarriage, [id number] Additional Instructions: Follow-up with a [facility] doctor in 3-5 days or if symptoms worsen and continue return to emergency room as soon as possible. Prescriptions: cephALEXin [Keflex] 500 mg PO Q8HR #21 cap Referrals: [facility] [Referring] - 3-5 Days [facility] [Provider Group] - 3-5 Days [facility] [Provider Group] - 3-5 Days Time of Disposition: 12:51
== END 2021-10-07 14:04 | disposition home or self-care (01) ==
LOC: ED 09:39
DX: O20.0 Threatened abortion (principal); O23.91 Unspecified genitourinary tract infection in pregnancy, first trimester; Z87.891 Personal history of nicotine dependence; F10.20 Alcohol dependence, uncomplicated; Z3A.12 12 weeks gestation of pregnancy
CPT/HCPCS: 36415; 76801; 76817; 81001; 84702; 85025; 85610; 85730; 86900; 86901; 87086; 99284